=== PATIENT | male | born 1990 | race Caucasian/White ===

== ENCOUNTER 2020-12-11 01:55 | Emergency (ER) | payer OTHER ==
[~2020-12-11] VITALS: Ht 182.9 cm; Wt 122.7 kg
[2020-12-11 02:13] VITALS: BP 146/94
--- NOTE | 2020-12-11 02:41 | PHYS DOC ---
Past History Past Medical History: No Pertinent History Past Surgical History: No Surgical History Additional Smoking Information: "I SMOKE CIGARS SOMETIMES" Alcohol Use: Occasionally General Adult EDM: Chief Complaint: LOWEREXTREMITY INJURY HPI: HPI: 30-year-old male presents with left lateral ankle pain. The pain is a pressure of moderate intensity. Patient is a home fire alarm installer. He was stepping down out of the truck and did not realize that the pavement was uneven. He placed weight on his foot and rolled his ankle with the foot medially. He had immediate pain and dropped to his knees. He was able to stand up, but did not want to walk in case he had a more significant injury. It is swollen and tender on the lateral malleolus. He denies any other injuries or complaints at this time. Review of Systems: Review of Systems: Constitutional: Denies fever or chills Eyes: Denies change in visual acuity HENT: Denies nasal congestion or sore throat Respiratory: Denies cough or shortness of breath Cardiovascular: Denies chest pain or edema GI: Denies abdominal pain, nausea, vomiting, bloody stools or diarrhea : Denies dysuria Musculoskeletal: Left ankle pain and swelling Integument: Denies rash Neurologic: Denies headache, focal weakness or sensory changes Endocrine: Denies polyuria or polydipsia Lymphatic: Denies swollen glands Psychiatric: Denies depression or anxiety Allergies: Allergies: Allergies Coded Allergies Type Severity Reaction Last Updated Verified No Known Drug Allergies 12/11/20 No Physical Exam: PE: Constitutional: Well developed, well nourished, obese, no acute distress, non- toxic appearance. [] HENT: Normocephalic, atraumatic, bilateral external ears normal, oropharynx moist, no oral exudates, nose normal. [] Eyes: PERRLA, EOMI, conjunctiva normal, no discharge. [] Neck: Normal range of motion, no tenderness, supple, no stridor. [] Cardiovascular:Heart rate regular rhythm, no murmur [] Lungs & Thorax: Bilateral breath sounds clear to auscultation [] Abdomen: Bowel sounds normal, soft, no tenderness, no masses, no pulsatile masses. [] Skin: Warm, dry, no erythema, no rash. [] Back: No tenderness, no CVA tenderness. [] Extremities: Left lateral ankle tender to palpation, swollen, no obvious deformity. Range of motion deferred due to pain. [] Neurologic: Alert and oriented X 3, normal motor function, normal sensory function, no focal deficits noted. [] Psychologic: Affect normal, judgement normal, mood normal. [] Current Patient Data: Vital Signs: Vital Signs Date Time Temp Pulse Resp B/P (MAP) Pulse Ox O2 Delivery O2 Flow Rate FiO2 12/11/20 02:13 97.6 97 18 146/94 (111) 99 Room Air EKG: EKG: [] Radiology/Procedures: Radiology/Procedures: [] Heart Score: C/O Chest Pain: N/A Risk Factors: Risk Factors: DM, Current or recent (<one month) smoker, HTN, HLP, family history of CAD, obesity. Risk Scores: Score 0 - 3: 2.5% MACE over next 6 weeks - Discharge Home Score 4 - 6: 20.3% MACE over next 6 weeks - Admit for Clinical Observation Score 7 - 10: 72.7% MACE over next 6 weeks - Early Invasive Strategies Course & Med Decision Making: Course & Med Decision Making Pertinent Labs and Imaging studies reviewed. (See chart for details) The patient's ankle x-ray is negative for fracture. This appears to be a lateral ankle sprain. We will place him in an air splint. We will give him at least 1 week off of work and have advised him to follow-up at the end of the week with his doctor for reevaluation. He may need more time before he can return to duty. I have also mentioned to him that physical therapy may be beneficial. This is Worker's Compensation so he will follow their guidelines. [] [place] Disclaimer: Buddy Disclaimer: This electronic medical record was generated, in whole or in part, using a voice recognition dictation system. Departure Departure: Impression: Primary Impression: Moderate left ankle sprain Qualified Codes: S93.402A - Sprain of unspecified ligament of left ankle, initial encounter Disposition: HOME / SELF CARE / HOMELESS Condition: STABLE Referrals: [facility] (PCP) Patient Instructions: Ankle Sprain, Acute, with Phase I Rehab[facility] GRIFFIN FRANCO DO December 11, 2020 02:41
--- NOTE | 2020-12-11 03:19 | RAD ---
EXAM: LEFT ANKLE 3 VIEWS. HISTORY: Fall, pain COMPARISON: None. FINDINGS: Three views of the left ankle are obtained. A small ossicle at the tip of the lateral malleolus system with a small avulsion fracture. There is s oft tissue swelling laterally. Alignment is normal. Joint spaces are maintained. IMPRESSION: 1. Small avulsion fracture at the tip of the lateral malleolus. Electronically signed by: Junito Lawler MD (12/11/2020 3:17 AM) [facility]
== END 2020-12-11 02:45 | disposition home or self-care (01) ==
LOC: ER 01:55
DX: S93.402A Sprain of unspecified ligament of left ankle, initial encounter (principal); F17.210 Nicotine dependence, cigarettes, uncomplicated; X50.9XXA Other and unspecified overexertion or strenuous movements or postures, initial encounter; Y93.89 Activity, other specified; Y92.89 Other specified places as the place of occurrence of the external cause; Y99.8 Other external cause status
CPT/HCPCS: 73610; 99283; L4350